=== PATIENT | female | born 1990 | race Hispanic/Latino ===

== ENCOUNTER 2023-10-29 20:14 | Day surgery (SDC) | payer OTHER, SELFPAY ==
[2023-10-29] MEDS ORDERED: diphenhydrAMINE 50 MG/ML VIAL ONE (20:59)
[2023-10-29] MEDS ORDERED: Metoclopramide HCl 10 MG/2 ML VIAL ONE (20:59)
[2023-10-29 21:01] LABS: Bilirubin Neg (Negative); Blood, Urine Negative (Negative); Clarity Clear (Clear); Glucose, Urine (Dipstick) Normal (Negative); Ketone, Urine Negative (Negative); Leukocyte Negative (Negative); Nitrite Negative (Negative); Protein, Urine (Dipstick) Negative (Neg-Trace); Urobilinogen Normal mg/dL (Less than 2)
[2023-10-29 21:07] LABS: #Eosinphils 0.1 10x3/uL (0.0-0.5); #Neutrophils 6.5 10x3/uL (1.5-8.4); %Basophils 0.4 % (0.0-2.0); %Eosinophils 0.7 % (0.0-6.0); %Lymphocytes 23.6 % (18.0-47.0); %Monocytes 9.5 % (0.0-10.0); %Neutrophils 64.9 % (40.0-75.0); Hematocrit 34.1 % (34.9-44.5); Hemoglobin 11.8 g/dL (12.0-15.5); Mean Corpuscular HGB CONC 34.6 g/dL (32.0-36.0); Mean Corpuscular Hemoglobin 31.7 pg (27.0-33.0); Mean Corpuscular Volume 91.7 fl (81.6-98.3); Mean Platelet Volume 10.1 fl (7.4-10.4); Platelet Count 309 10x3/uL (150-450); RBC Distribution Width 13.2 % (11.5-14.5); Red Blood Cell (RBC) Count 3.72 10x6/uL (3.90-5.03)
[2023-10-29 21:12] LABS: Bacteria/HPF 1+ HPF (None Seen); CAUTI Indications for Culture Pelvic or flank pain; RBC/HPF None Seen HPF (0-3); Squamous Epithelial 0-3 HPF (0-3); Urine Culture Reflex No No; WBC/HPF 0-3 HPF (0-3)
[2023-10-29 21:15] LABS: ALT (SGPT) 21 U/L (8-55); AST (SGOT) 18 U/L (5-34); Albumin 3.4 g/dL (3.5-5.0); Alkaline Phosphatase 67 U/L (40-110); Anion Gap 16 mmol/L (10-20); BUN (Urea Nitrogen) 8 mg/dL (7.0-18.7); Bilirubin, Total 0.3 mg/dL (0.2-1.2); Calc. Creatinine Clearance 0 mL/min (70-130); Calcium 8.8 mg/dL (7.8-10.44); Carbon Dioxide 19 mmol/L (22-29); Chloride 106 mmol/L (98-107); Estimated GFR 106; Globulin 3.3 g/dL (2.4-3.5); Glucose 99 mg/dL (70-105); Potassium 3.8 mmol/L (3.5-5.1); Protein, Total 6.7 g/dL (6.0-8.3); Sodium 137 mmol/L (136-145)
[2023-10-29 23:11] VITALS: BMI 36.6
[2023-10-29] MEDS ORDERED: hydrALAZINE 20 MG/ML VIAL SLOW IVP PRN (23:35)
[2023-10-29] MEDS ORDERED: Lactated Ringer's 1,000 ML IV SCH (23:45)
[2023-10-29] MEDS ORDERED: Acetaminophen 500 MG TAB PO SCH (23:45)
[2023-10-30 00:55] LABS: Creatinine, Urine 58.85 mg/dL (47-110); Protein, Urine Random Quant Less than 10 mg/dL (1-14)
== END 2023-10-30 01:15 | disposition home or self-care (01) ==
LOC: CSHERS 20:14 → CSHLD/OP 22:37
PROVIDERS: ATTEND Family Medicine
DX: O99.891 Other specified diseases and conditions complicating pregnancy (principal); R51.9 Headache, unspecified; Z79.899 Other long term (current) drug therapy; Z3A.32 32 weeks gestation of pregnancy
CPT/HCPCS: 80053; 81001; 82570; 84156; 85025; 87086; 96360; 99282; J1200; J2765

== ENCOUNTER 2023-12-20 19:30 | Inpatient (IN) | payer MEDICAID, OTHER ==
[2023-12-20] MEDS ORDERED: Misoprostol 200 MCG TAB PR PRN (22:34)
[2023-12-20] MEDS ORDERED: Lidocaine 1% (PF) 30 ML VIAL SC PRN (22:34)
[2023-12-20] MEDS ORDERED: HYDROcodone/Acetaminophen 5/325 mg Tablet PO PRN (22:34)
[2023-12-20] MEDS ORDERED: Acetaminophen 500 MG TAB PO PRN (22:34)
[2023-12-20] MEDS ORDERED: hydrALAZINE 20 MG/ML VIAL SLOW IVP PRN (22:34)
[2023-12-20] MEDS ORDERED: Ibuprofen 800 MG TAB PO PRN (22:34)
[2023-12-20] MEDS ORDERED: Methylergonovine 0.2 MG/ML VIAL IM PRN (22:34)
[2023-12-20] MEDS ORDERED: Diphenoxylate HCl/Atropine Tablet PO PRN (22:34)
[2023-12-20] MEDS ORDERED: Promethazine HCl 25 MG/ML VIAL IM PRN (22:34)
[2023-12-20] MEDS ORDERED: fentaNYL 50 mcg/mL 1 mL Vial SLOW IVP PRN (22:34)
[2023-12-20] MEDS ORDERED: Carboprost 250 MCG/ML AMP IM PRN (22:34)
[2023-12-20] MEDS ORDERED: Ondansetron PF 4 MG/2 ML Vial IVP PRN (22:34)
[2023-12-20] MEDS ORDERED: Oxytocin 30 units/NS 500 ML 500 ML IV SCH ×3 (23:00)
[2023-12-20] MEDS ORDERED: Lactated Ringer's 1,000 ML IV SCH (23:00)
[2023-12-20 23:01] VITALS: BMI 38.0
[2023-12-21] MEDS ORDERED: Penicillin G Potassium 5 MILL.UNITS in Sodium Chloride 0.9% 100 ML IVPB SCH
[2023-12-21 00:35] LABS: HBSAg Index 0.15 S/CO (0-0.99); Hep B Surf Ag - L&D Non-Reactive S/CO (NonReactive)
[2023-12-21 00:37] LABS: Syphilis Antibody Nonreactive (Nonreactive); Syphilis Antibody Index 0.08 S/CO (<1.00 Non-Reactive)
[2023-12-21 00:46] LABS: Hematocrit 35.9 % (34.9-44.5); Hemoglobin 12.1 g/dL (12.0-15.5); Mean Corpuscular HGB CONC 33.7 g/dL (32.0-36.0); Mean Corpuscular Hemoglobin 30.9 pg (27.0-33.0); Mean Corpuscular Volume 91.8 fl (81.6-98.3); Mean Platelet Volume 9.9 fl (7.4-10.4); Platelet Count 286 10x3/uL (150-450); RBC Distribution Width 13.5 % (11.5-14.5); Red Blood Cell (RBC) Count 3.91 10x6/uL (3.90-5.03); White Blood Cell (WBC) Count 9.8 10x3/uL (3.5-10.5)
[2023-12-21] MEDS: Misoprostol 100 MCG TAB PO SCH ×2 (03:03→15:57)
[2023-12-21] MEDS: Penicillin G 2.5 MILL.units 2.5 MILL.UNITS in Premix 1 BAG IVPB SCH ×3 (04:18→16:02)
[2023-12-21] MEDS ORDERED: Oxytocin 30 units/NS 500 ML 500 ML ONE (08:16)
[2023-12-21] MEDS ORDERED: fentaNYL/Ropivacaine Epidural 100 ML ONE (08:21)
[2023-12-21] MEDS ORDERED: diphenhydrAMINE 50 MG/ML VIAL IVP PRN (09:18)
[2023-12-21] MEDS ORDERED: Lactated Ringer's 500 ML IV PRN (09:18)
[2023-12-21] MEDS ORDERED: Moisturizing Cream (Eucerin) 113 GM JAR TOP PRN (09:18)
[2023-12-21] MEDS ORDERED: Naloxone HCl 0.4 mg/ml Vial IVP PRN ×2 (09:18)
[2023-12-21] MEDS ORDERED: Promethazine HCl 25 MG/ML VIAL IM PRN ×2 (09:18→14:27)
[2023-12-21] MEDS ORDERED: Ondansetron PF 4 MG/2 ML Vial IVP PRN ×2 (09:18→14:27)
[2023-12-21] MEDS ORDERED: ePHEDrine Sulfate 50 MG/10 ML VIAL SLOW IVP PRN (09:18)
[2023-12-21] MEDS ORDERED: Acetaminophen 325 MG TAB PO PRN (09:18)
[2023-12-21] MEDS ORDERED: fentaNYL 2 mcg/Ropivacaine 0.2% Epidural 100 ML CADD EPIDURAL SCH (09:30)
[2023-12-21] MEDS ORDERED: Communication Order-Pharmacy FS SCH (09:30)
[2023-12-21] MEDS ORDERED: Milk Of Magnesia 30 ML UDCUP PO PRN (14:27)
[2023-12-21] MEDS ORDERED: hydrALAZINE 20 MG/ML VIAL SLOW IVP PRN (14:27)
[2023-12-21] MEDS ORDERED: Bisacodyl 10 MG SUPP PR PRN (14:27)
[2023-12-21] MEDS ORDERED: HYDROcodone/Acetaminophen 5/325 mg Tablet PO PRN (14:27)
[2023-12-21] MEDS ORDERED: Lanolin Ointment 7 GM TUBE TOP PRN (14:27)
[2023-12-21] MEDS ORDERED: Boostrix 0.5 ML (Tdap) VIAL (>/=7 yrs of age) IM ONE (14:27)
[2023-12-21] MEDS ORDERED: Oxytocin 30 units/NS 500 ML 500 ML IV SCH (14:27)
[2023-12-21] MEDS ORDERED: diphenhydrAMINE 25 MG CAP PO PRN (14:27)
[2023-12-21] MEDS: Ibuprofen 800 MG TAB PO SCH (16:00)
[2023-12-21] MEDS: Docusate 100 MG CAP PO SCH (19:16)
[2023-12-21] MEDS: Ferrous Sulfate 325 MG TAB PO SCH (19:16)
[2023-12-22] MEDS: Ferrous Sulfate 325 MG TAB PO SCH (07:40)
[2023-12-22] MEDS: Ibuprofen 800 MG TAB PO SCH ×3 (08:39→15:00)
[2023-12-22] MEDS: Docusate 100 MG CAP PO SCH (08:39)
[2023-12-22] MEDS ORDERED: Prenatal Vitamin 1 TAB PO SCH (09:00)
[2023-12-22 11:40] VITALS: BP 104/59; TEMP 98.5
== END 2023-12-22 18:30 | disposition home or self-care (01) | DRG 807 ==
LOC: CSHLD 22:11 → CSHPP 12-21 15:00
PROVIDERS: ADMIT Family Medicine; ATTEND Family Medicine
PROC: 10E0XZZ Delivery of Products of Conception, External Approach (ICD-10-PCS; principal; 2023-12-21)
PROC: 3E0P7VZ Introduction of Hormone into Female Reproductive, Via Natural or Artificial Opening (ICD-10-PCS; 2023-12-21)
PROC: 10907ZC Drainage of Amniotic Fluid, Therapeutic from Products of Conception, Via Natural or Artificial Opening (ICD-10-PCS; 2023-12-21)
PROC: 3E033XZ Introduction of Vasopressor into Peripheral Vein, Percutaneous Approach (ICD-10-PCS; 2023-12-21)
DX: O99.824 Streptococcus B carrier state complicating childbirth (principal); Z37.0 Single live birth; O69.81X0 Labor and delivery complicated by cord around neck, without compression, not applicable or unspecified; Z3A.39 39 weeks gestation of pregnancy
CPT/HCPCS: 85027; 86780; 86850; 86900; 86901; 87340; J2540; J2590